=== PATIENT | female | born 1985 | race Caucasian/White ===

== ENCOUNTER 2017-07-08 16:33 | Emergency (ER) | payer MEDICAID ==
[~2017-07-08] VITALS: Ht 165.1 cm; Wt 146.1 kg
[2017-07-08 16:38] VITALS: Ht 165.1 cm; Wt 146.1 kg
[2017-07-08 18:13] VITALS: BP 144/64
== END 2017-07-08 18:13 | disposition home or self-care (01) ==
LOC: ED 16:33
DX: T78.3XXA Angioneurotic edema, initial encounter (principal); Z88.0 Allergy status to penicillin
CPT/HCPCS: J1100; Q0163

== ENCOUNTER 2018-03-30 18:50 | Emergency (ER) | payer MEDICAID ==
[2018-03-30 19:11] VITALS: Ht 165.1 cm
[2018-03-30 22:01] VITALS: BP 152/96
== END 2018-03-30 22:01 | disposition home or self-care (01) ==
LOC: ED 18:50
DX: J02.9 Acute pharyngitis, unspecified (principal); Z88.0 Allergy status to penicillin
CPT/HCPCS: J1100

== ENCOUNTER 2018-07-27 16:57 | Emergency (ER) | payer MEDICAID ==
[~2018-07-27] VITALS: Ht 165.1 cm; Wt 155.6 kg
[2018-07-27 16:59] VITALS: Ht 165.1 cm; Wt 155.6 kg
[2018-07-27 17:43] LABS: BASOPHIL % 0.8 % (0-2); PLATELET COUNT 282 x10^3mcL (130-400)
[2018-07-27 17:52] LABS: CALCIUM 8.3 mg/dL (8.5-10.1); CARBON DIOXIDE 26.2 mmol/L (21-32); CHLORIDE SERUM 105 mmol/L (98-107); CREATININE SERUM 0.8 mg/dL (0.6-1.0); GFR1 > 60 mL/min; GLUCOSE SERUM 126 mg/dL (74-106); POTASSIUM SERUM 3.2 mmol/L (3.5-5.1); SODIUM SERUM 141 mmol/L (136-145)
[2018-07-27 17:57] LABS: ALBUMIN 3.5 g/dL (3.4-5.0); ALKALINE PHOSPHATASE 91 U/L (46-116); ALT/SGPT 17 U/L (14-59); AST/SGOT 15 U/L (15-37); BILIRUBIN TOTAL 0.23 mg/dL (0.20-1.00); TOTAL PROTEIN, SERUM 7.3 g/dL (6.4-8.2)
[2018-07-27 17:57] LABS: microscopic required? NO
[2018-07-27 18:01] LABS: rbc morphology (normal/abnorm) ABNORMAL (NORMAL)
[2018-07-27 18:26] LABS: urine erythrocyte NEGATIVE (NEGATIVE)
[2018-07-27 19:45] VITALS: BP 158/98
== END 2018-07-27 19:45 | disposition home or self-care (01) ==
LOC: ED 16:57
PROVIDERS: Emergency Medicine
DX: N93.9 Abnormal uterine and vaginal bleeding, unspecified (principal); R10.31 Right lower quadrant pain; Z88.0 Allergy status to penicillin
CPT/HCPCS: J1885

== ENCOUNTER 2019-02-11 20:51 | Emergency (ER) | payer MEDICAID ==
[~2019-02-11] VITALS: Ht 165.1 cm; Wt 152.9 kg
[2019-02-11 20:54] VITALS: BP 157/82
== END 2019-02-11 22:54 | disposition home or self-care (01) ==
LOC: ED 20:51
DX: T24.002A Burn of unspecified degree of unspecified site of left lower limb, except ankle and foot, initial encounter (principal); T24.001A Burn of unspecified degree of unspecified site of right lower limb, except ankle and foot, initial encounter; Z88.0 Allergy status to penicillin; X08.8XXA Exposure to other specified smoke, fire and flames, initial encounter; Y93.89 Activity, other specified; Y92.89 Other specified places as the place of occurrence of the external cause; Y99.8 Other external cause status
CPT/HCPCS: 90715

== ENCOUNTER 2019-07-14 23:49 | Emergency (ER) | payer MEDICAID ==
[~2019-07-14] VITALS: Ht 167.6 cm; Wt 150.1 kg
[2019-07-14 23:55] VITALS: Ht 167.6 cm; Wt 150.1 kg
[2019-07-15 02:58] VITALS: BP 136/78
== END 2019-07-15 02:58 | disposition home or self-care (01) ==
LOC: ED 23:49
DX: J40 Bronchitis, not specified as acute or chronic (principal); J06.9 Acute upper respiratory infection, unspecified; Z88.0 Allergy status to penicillin
CPT/HCPCS: 87804; J1885

== ENCOUNTER 2019-08-19 23:04 | Emergency (ER) | payer MEDICAID ==
[~2019-08-19] VITALS: Ht 165.1 cm; Wt 151.0 kg
[2019-08-19 23:50] VITALS: Ht 165.1 cm; Wt 151.0 kg
[2019-08-20 01:38] LABS: microscopic required? YES; urine erythrocyte 3+ (NEGATIVE)
[2019-08-20 02:27] LABS: CALCIUM 8.7 mg/dL (8.5-10.1); CHLORIDE SERUM 106 mmol/L (98-107); CREATININE SERUM 0.8 mg/dL (0.6-1.0); GFR1 > 60 mL/min; GLUCOSE SERUM 93 mg/dL (74-106); POTASSIUM SERUM 3.3 mmol/L (3.5-5.1); SODIUM SERUM 144 mmol/L (136-145)
[2019-08-20 02:31] LABS: BASOPHIL % 0.4 % (0-2); PLATELET COUNT 303 x10^3mcL (130-400)
[2019-08-20 02:32] LABS: RED CELL DISTRIBUTION WIDTH 17.7 % (11.5-14.5)
[2019-08-20 04:32] VITALS: BP 138/73
== END 2019-08-20 04:32 | disposition home or self-care (01) ==
LOC: ED 23:04
PROVIDERS: Emergency Medicine
DX: N93.8 Other specified abnormal uterine and vaginal bleeding (principal); R79.1 Abnormal coagulation profile; Z88.0 Allergy status to penicillin
CPT/HCPCS: 36415; Q0092